=== PATIENT | female | born 2000 | race Caucasian/White ===

== ENCOUNTER 2025-01-24 08:09 | Emergency (ER) | payer OTHER ==
[~2025-01-24] VITALS: Ht 162.6 cm; Wt 103.4 kg
[2025-01-24 08:11] VITALS: TEMP 97.1
--- NOTE | 2025-01-24 09:37 | Physician Documentation ---
History of Present Illness Chief Complaint: Abdominal Pain w/vomiting Stated Complaint: ABD PAIN DOC NOTE Time Seen by MD: 09:19 Mode of Arrival: POV HPI This is a 24-year-old female who presents with suprapubic abdominal cramps, patient reports she is currently on her menstrual period, patient reports cramping is similar nature to typical menstrual cramps though much more intense. Patient reports that she has been having somewhat irregular cycles since discontinuing control 4-5 months prior, patient reports negative home test the past three days. Patient reports no other acute symptoms or concerns. Medication Reconciliation Allergies: Coded Allergies: No Known Allergies (Unverified , 01/24/25) Scheduled Cyclobenzaprine* (Cyclobenzaprine*), 1 TAB PO Q8H Ibuprofen (Ibuprofen), 1 TAB PO Q8H Past Medical History Past Medical History: No Pertinent History Review of Systems ROS As stated above in the HPI, otherwise all systems are reviewed and negative. Physical Exam Vital Signs: Temperature: 97.1, Source: Temporal, Heart Rate: 82, Respiratory Rate: 18, BP: 111/70, Pulse Oximetry: 98, Weight: 103.400 Oxygen Flow Rate: 0 Physical Exam VITALS: Reviewed and as above. GENERAL: Alert, nontoxic appearing, no apparent distress. RESPIRATORY: No increased work of breathing, no respiratory distress, speaking in full clear sentences, clear lung sounds in all thao CV: Regular rate and rhythm no murmur GI: Soft, nontender, nondistended, no rebound, no guarding Progress Results/Orders Results/Orders Vital Signs 01/24/25 08:11 Temp 97.1 Pulse 82 Resp 18 B/P (MAP) 111/70 Pulse Ox 98 O2 Flow Rate 0 Medical Decision Making Findings This 24-year-old female presented to the emergency department with concern for a typically intense menstrual cramps, patient describes suprapubic cramping simil ar to typical menstrual cramps though more intense than normal, patient reports currently on menstrual period. Given patient's description of menstrual cramps as similar to previous and typical menstrual cramps though with increased intensity I suspect cramping is related to menstrual cycle, with shared decision-making patient will be medicated in the emergency department with NSAID and discharged with prescription for medications for menstrual cramps. Patient is to follow up with primary care and cashier and waiter/waitress. Provided home care instructions, return to care precautions, and follow up instructions which she verbalized understanding of. Differential Dx:Considerations: Include: AAA, -Complete, - Incomplete, -Inevitable, -Missed, -Threatened, Appendicitis, Bowel obstruction, Cholangitis, Cholelithasis, Constipation, Diverticular disease, Gastritis/PUD, Gastroenteritis, Inflammatory BD, Ischemic bowel, Ovarian cyst/torsion, Urinary obstruction, Urinary tract infection, Other (, abnormal uterine bleeding, dysmenorrhea) Departure Time of Disposition: 10:02 Disposition: 01 HOME / SELF CARE / HOMELESS Impression: Primary Impression: Severe menstrual cramps Condition: Improved Discharge Instructions: Dysmenorrhea Additional Instructions: Please use the prescribed ibuprofen or [id number] ibuprofen, 800 mg every 8 hours for your symptoms, please take the ibuprofen with food to avoid stomach upset. Do not take the ibuprofen for the next 12 hours as you received a Toradol injection which replaces ibuprofen, naproxen, and aspirin. You may use the prescribed muscle relaxer if menstrual cramps disturbs sleep, but do not drive or operate machinery while using this medication and do not combine this medication with alcohol, narcotics, or any other medication that makes you drowsy. Please follow up with your primary care provider and/or cashier and waiter/waitress in the next few days. Please return to the emergency department for any new or worsening concerning symptoms. Referrals: NO PRIMARY CARE PROVIDER (PCP) Prescriptions Cyclobenzaprine* (Cyclobenzaprine*) 10 Mg Tablet 1 TAB PO Q8H for muscle spasms for 10 Days, #30 TAB 0 Refills Prov: KATELYN ROBB 01/24/25 Ibuprofen (Ibuprofen) 800 Mg Tablet 1 TAB PO Q8H for pain for 10 Days, #30 TAB 0 Refills Prov: KATELYN ROBB 01/24/25 Education Educated: Patient Educated regarding: diagnosis, treatment, prognosis, need for follow up Signature Scribe Signature: No scribe Attestation: The note accurately reflects work and decisions made by me.LUCAS Hernandez 01/24/25 21:39 Parts of this note were created using [employer] voice recognition software program. While efforts were made to correct any mistakes made by this voice recognition software program, nonsensical phrases may remain in this note. In addition, there may be errors and syntax, grammar, content and spelling. KATELYN ROBB [facility] Jan 24, 2025 09:37
[2025-01-24] MEDS ORDERED: IBUP-1986 PO (10:08)
[2025-01-24] MEDS: ketorolac trometh 15mg/ml vial 15 MG/ML ML IM ONE (10:09)
[2025-01-24] MEDS ORDERED: CYCL-1 PO (10:21)
[2025-01-24 10:26] VITALS: BP 107/61; PULSE 67; RESP 18; O2SAT 98
== END 2025-01-24 10:28 | disposition home or self-care (01) ==
LOC: ER 08:09
DX: N94.6 Dysmenorrhea, unspecified (principal); Z79.899 Other long term (current) drug therapy
CPT/HCPCS: 96372; 99283; J1885